=== PATIENT | female | born 1960 | race Caucasian/White ===

== ENCOUNTER 2024-01-07 12:58 | Emergency (ER) | payer MEDICAID ==
[~2024-01-07] VITALS: Ht 160 cm; Wt 68.6 kg
[2024-01-07 13:07] VITALS: BP 181/84; PULSE 81; O2SAT 98
[2024-01-07] MEDS ORDERED: ketorolac trometh inj. 60 MG/2 ML VIAL IM ONE (13:55)
[2024-01-07 14:25] VITALS: RESP 16
[2024-01-07] MEDS: ketorolac tromethamine 15mg/ml inj. IM ONE (14:25)
[2024-01-07 14:59] VITALS: TEMP 97.8
== END 2024-01-07 15:01 | disposition home or self-care (01) ==
LOC: ER 12:59
DX: S20.211A Contusion of right front wall of thorax, initial encounter (principal); R07.81 Pleurodynia; R07.89 Other chest pain; X58.XXXA Exposure to other specified factors, initial encounter; Y93.89 Activity, other specified; Y92.89 Other specified places as the place of occurrence of the external cause; Y99.8 Other external cause status
CPT/HCPCS: 71101; 96372; 99283; J1885

== ENCOUNTER 2025-06-06 12:27 | Emergency (ER) | payer MEDICARE, MEDICAID ==
[~2025-06-06] VITALS: Ht 160 cm; Wt 68.0 kg
[2025-06-06 12:43] VITALS: TEMP 97.6
--- NOTE | 2025-06-06 13:57 | Physician Documentation ---
History of Present Illness ~ Chief Complaint: Dizziness Stated Complaint: DIZZINESS Time Seen by MD: 13:56 HPI 65-year-old female, presenting with dizziness She tells me that this morning when she woke up, she felt very dizzy. She describes it as lightheaded like she was going to faint. She also felt like things were spinning. She did have an episode of nausea and vomiting associated with it. Currently she tells me that she feels better while she is lying still. No dizziness at rest. She is concerned that she could be dehydrated. She does have a chronic cough over the past couple of months, and occasionally has pain in her ribs from coughing. She denies any fevers, chills, headache, visual changes, chest pressure, shortness of breath, abdominal pain, leg pain or swelling, or other associated symptoms. No history of vertigo. Medication Reconciliation Allergies: Coded Allergies: No Known Allergies (Unverified , 01/07/24) Scheduled Meclizine HCl (Meclizine HCl), 1 TAB PO Q8H Discontinued Medications Meclizine Hcl (Meclizine Hcl), 1 TAB PO Q8H Discontinued Reason: Prescription changed Review of Systems Constitutional: Denies: fever Neurological: Reports: dizziness Physical Exam Vital Signs: Temperature: 97.6, Source: Temporal, Heart Rate: 78, Respiratory Rate: 18, BP: 181/85, Pulse Oximetry: 98, Weight: 68.000 Oxygen Flow Rate: 0 Physical Exam General: This is a pleasant and talkative middle-aged female, daughter at bedside HEENT: Atraumatic, pupils are equal and reactive, extraocular movements intact, oropharynx appears dry Heart: Regular rate and rhythm, appears sinus rhythm on the monitor with a rate in the 70s, normal-appearing peripheral perfusion Lungs: Clear breath sounds bilateral, normal work of breathing, normal oxygen saturation on room air Abdomen: Soft, nondistended, nontender, no rebound or guarding Extremities: Warm and well-perfused, no edema or posterior calf tenderness Neuro: Alert and oriented. Cranial nerves 2-12 grossly intact. No nystagmus. No numbness or weakness to the extremities. Ambulates with a steady gait. Psychiatric: Calm and cooperative with exam Progress Results/Orders Results/Orders Orders - PARAMJIT CONLEY MD Cult Urine + [place] Ct (06/06/25 14:58) Ct Head (06/06/25 17:00) Completed Orders - PARAMJIT CONLEY MD Hs Troponin I W Calculations (06/06/25 14:08) Electrocardiogram (06/06/25 14:09) Cbc/Diff (06/06/25 14:08) CMP (06/06/25 14:08) MG (06/06/25 14:08) PBNP (06/06/25 14:08) Normal Saline 1000ml (0.9% Sodium Chlori (06/06/25 14:10) Ondansetron Inj. (Zofran 4mg/2ml Vial) (06/06/25 14:10) Meclizine Tablets (Antivert Tablet) (06/06/25 14:10) Ua W/Microscopic, Cult If Ind (06/06/25 14:28) Ct Head (06/06/25 17:00) Diazepam Inj (Valium Inj) (06/06/25 16:40) Medications Received in ER Medications (Trade) Dose Ordered Sig/[place] Route PRN Reason Start Time Stop Time Status Last Admin Dose Admin Sodium Chloride 1,000 ml @ 1,000 mls/hr ONCE ONCE IV 06/06/25 14:10 06/06/25 15:09 DC 06/06/25 14:22 1,000 MLS/HR (Zofran 4mg/2ml vial) 4 mg ONCE ONCE IV 06/06/25 14:10 06/06/25 14:11 DC 06/06/25 14:27 4 MG (Antivert tablet) 25 mg ONCE ONCE PO 06/06/25 14:10 06/06/25 14:17 DC 06/06/25 14:27 25 MG (Valium inj) 2.5 mg ONCE ONCE IV 06/06/25 16:40 06/06/25 16:41 DC 06/06/25 17:13 2.5 MG Vital Signs 06/06/25 06/06/25 06/06/25 06/06/25 12:43 13:03 15:26 17:13 Temp 97.6 Pulse 81 78 82 Resp 18 18 16 14 B/P (MAP) 206/89 181/85 (117) 157/74 (101) Pulse Ox 99 98 98 O2 Flow Rate 0 06/06/25 06/06/25 17:15 18:29 Pulse 82 Resp 16 16 B/P (MAP) 150/88 (108) Pulse Ox 96 Laboratory Tests Test 06/06/25 14:20 06/06/25 14:28 White Blood Count 8.9 Red Blood Count 4.58 Hemoglobin 13.8 Hematocrit 41.2 Mean Corpuscular Volume 90.1 Mean Corpuscular Hemoglobin 30.2 Mean Corpuscular Hemoglobin Concent 33.6 Red Cell Distribution Width 13.5 Platelet Count 363 Mean Platelet Volume 8.0 Neutrophils (%) (Auto) 74.7 Lymphocytes (%) (Auto) 18.7 L Monocytes (%) (Auto) 5.9 Eosinophils (%) (Auto) 0.4 Basophils (%) (Auto) 0.3 Neutrophils # (Auto) 6.6 Lymphocytes # (Auto) 1.7 Monocytes # (Auto) 0.5 Eosinophils # (Auto) 0.0 Basophils # (Auto) 0.0 CBC Comment Sodium Level 141 Potassium Level 3.8 Chloride Level 104 Carbon Dioxide Level 26.5 Anion Gap 11 Blood Urea Nitrogen 5 L Creatinine 0.41 Estimated GFR/1.73 m2 > 90 BUN/Creatinine Ratio 12.2 Glucose Level 108 H Calcium Level 9.1 Magnesium Level 2.3 Total Bilirubin 0.4 Aspartate Amino Transf (AST/SGOT) 21 Alanine Aminotransferase (ALT/SGPT) 18 Alkaline Phosphatase 91 Troponin I High Sensitivity 6 Pro-B-Type Natriuretic Peptide 135 H Total Protein 6.8 Albumin 3.7 Globulin 3.1 Albumin/Globulin Ratio 1.2 Chemistry Comments Urine Specimen Description Urinal Urine Color Yellow Urine Clarity Clear Urine pH 7.0 Urine Specific [place] <=1.005 Urine Protein Negative Urine Glucose (UA) Negative Urine Ketones Trace H Urine Occult Blood Negative Urine Nitrite Negative Urine Bilirubin Negative Urine Urobilinogen 0.2 Urine Leukocyte Esterase Small H Urine RBC 0-2 Urine WBC 5-10 H Urine Squamous Epithelial Cells Few Urine Bacteria Few Urine Mucus None seen Urine Culture Indicated Indicated Volume Urine Centrifuged 10 ml Urine Comment Microbiology Date/Time Source Procedure Growth Status 06/06/25 14:58 Urine Urinal (Er Only) Urine Culture - Preliminary Culture received. Resulted EKG/XRAY/CT/US/VASC/MRI EKG : Additional Comment I personally interpreted the EKG and this shows: Sinus rhythm, rate 67, QTC 449, no STEMI CT : Impression I personally interpreted the CT scan, and this shows no acute intracranial hemorrhage or mass Medical Decision Making Differential Dx:Considerations: Include: anemia, CVA, dehydration, dysrhythmia, electrolyte imbalance, renal failure, vertigo central, vertigo peripheral Additional Information The patient presents with dizziness. Per her history is difficult to tell if this is lightheadedness and near syncope or vertigo type symptoms. Currently she is asymptomatic. No headache or other neurologic changes. No fevers or infectious symptoms. She does appear clinically dry and so she was given IV fluids as well as Zofran and meclizine. Labs were unremarkable including no anemia, no electrolyte derangement, no AZAEL. After IV fluids and medications, the patient did not appear lightheaded or dizzy anymore. She ambulated without difficulty. However she then had another temporary episode of what appeared to be vertigo. She is given a dose of Valium with good improvement. After observation she improved and requested to go home. Overall this appears most consistent with peripheral vertigo. I doubt stroke or central vertigo. She will be discharged with meclizine and home care instructions. Return precautions given. Departure Time of Disposition: 18:45 Disposition: 01 HOME / SELF CARE / HOMELESS Impression: Primary Impression: Positional vertigo Additional Impression: Dehydration Condition: Improved Discharge Instructions: Benign Positional Vertigo Referrals: NO PRIMARY CARE PROVIDER (PCP) Prescriptions Meclizine HCl (Meclizine HCl) 25 Mg Tablet 1 TAB PO Q8H for dizziness for 30 Days, #90 TAB Prov: PARAMJIT CONLEY MD 06/06/25 Education Educated: Patient Educated regarding: diagnosis, treatment, need for follow up Signature Scribe Signature: [email or web address] Attestation: PARAMJIT Toth MD Jun 06, 2025 13:57
--- NOTE | 2025-06-06 14:15 | ELECTROCARDIOGRAPH REPORT ---
[facility] Test Date: 2025-06-06 Test Time: 14:12:27 Pat Name: BAIRON BARBOSA Department: [facility] Patient ID: [id number] Room: Gender: F Manager Restaurant: : 1960 Requested By: PARAMJIT CONLEY Order Number: [id number] Reading MD: Dr. Magdaleno Swartz Measurements Intervals [place] Rate: 67 P: 14 [place]: 165 QRS: 74 QRSD: 93 T: 72 QT: 425 QTc: 449 Interpretive Statements Sinus rhythm Electronically Signed On 06-09-2025 19:19:[address] Magdaleno Swartz Please click the below link to view image of tracing.
[2025-06-06] MEDS: normal saline 1000ml 1,000 ML IV ONE (14:22)
[2025-06-06] MEDS: ondansetron/PF 4mg/2ml inj IV ONE (14:27)
[2025-06-06 14:34] LABS: MEAN PLATELET VOLUME 8.0 FL (7.4-10.4); RED CELL DISTRIBUTION WIDTH 13.5 % (11.5-14.5)
[2025-06-06 14:50] LABS: CREATININE 0.41 MG/DL (0.40-0.90); TOTAL CARBON DIOXIDE 26.5 MMOL/L (24-32); eCRCL 112 ML/MIN; eGFR > 90 ML/MIN
[2025-06-06 14:51] LABS: LEUKOCYTE ESTERASE ,URINE SMALL (Neg); NITRITES, URINE NEGATIVE (Neg); OCCULT BLOOD,URINE NEGATIVE (Neg)
[2025-06-06 14:55] LABS: UA COLLECTION TYPE URINAL
[2025-06-06 14:57] LABS: MUCUS STRANDS NONE SEEN /LPF (Neg); SQUAMOUS EPITHELIAL CELL,UR FEW /LPF (FEW)
[2025-06-06 14:58] LABS: PRO BRAIN NATRIURETIC PEPTIDE 135 PG/ML (0-125)
--- NOTE | 2025-06-06 17:10 | RADIOLOGY REPORT ---
EXAM: CT CT HEAD INDICATION: dizziness/vertigo TECHNIQUE: CT of the head without intravenous contrast. Radiation Dose : 1. Head: CT Dose: CTDI volume is 51 mGy. Dose-length product is 893 mGy*cm The dose indicators for CT are the volume Computed Tomography (CT) Dose Index (CTDIvol) and the Dose Length Product (DLP), and are measured in units of mGy and mGy-cm, respectively. These indicators are not patient dose, but values generated from the CT scanner acquisition factors. The report includes radiation exposure data for exposures received during this examination. COMPARISON: None FINDINGS: There is no evidence of acute intracranial hemorrhage, extra-axial collection, mass effect, midline shift, herniation or hydrocephalus. The ventricles, sulci and cisterns are age appropriate. The bingham-white differentiation is intact. Patchy periventricular and subcortical white matter hypoattenuation is nonspecific but may be related to small vessel ischemic disease. The visualized paranasal sinuses and mastoid air cells are clear. The surrounding soft tissues and osseous structures are unremarkable. IMPRESSION: No acute intracranial abnormality. Radiation optimization: All CT scans at this facility use at least one of these dose optimization techniques: automated exposure control mA and/or kV adjustment per patient size (includes targeted exams where dose is matched to clinical indication) or iterative reconstruction.
[2025-06-06] MEDS: diazepam inj 5 MG/ML inj. IV ONE (17:13)
[2025-06-06] MEDS ORDERED: MECL-231 PO (18:46)
[2025-06-06] MEDS ORDERED: MECL-302 PO (18:48)
[2025-06-06 19:12] VITALS: BP 142/88; PULSE 88; RESP 16; O2SAT 5
== END 2025-06-06 19:14 | disposition home or self-care (01) ==
LOC: ER 12:28
DX: H81.399 Other peripheral vertigo, unspecified ear (principal); E86.0 Dehydration; Z79.899 Other long term (current) drug therapy
CPT/HCPCS: 36415; 70450; 80053; 81001; 83735; 83880; 84484; 85025; 87088; 93005; 96361; 96374; 96375; 99285; J2405; J3360; J7030; J8597